=== PATIENT | female | born 1980 | race Caucasian/White ===

== ENCOUNTER → 2021-10-24 | Outpatient (CLI) | payer OTHER | LOC: KOH-I 09:38 | DX: K59.00 Constipation, unspecified (principal) | CPT/HCPCS: 74018 ==

== ENCOUNTER → 2021-11-25 | Outpatient (CLI) | payer OTHER | LOC: KOH-I 11-14 09:30 | DX: R10.9 Unspecified abdominal pain (principal) | CPT/HCPCS: 76700 ==